=== PATIENT | male | born 1965 | race Two or more races ===

== ENCOUNTER 2017-11-14 12:36 | Emergency (ER) | payer SELFPAY ==
[~2017-11-14] VITALS: Ht 167.6 cm; Wt 68.0 kg
[2017-11-14 13:36] VITALS: BP 128/83
[2017-11-14 14:29] LABS: CHLORIDE 102 mEq/L (98-107)
[2017-11-14 14:35] LABS: BASOPHILS % 0.2 % (0.0-2.0); EOSINOPHILS % 0.1 % (0.0-5.0); HEMATOCRIT. 47.5 % (42.0-52.0); HEMOGLOBIN. 16.4 g/dL (14.0-18.0); LYMPHOCYTES % 8.5 % (20.0-50.0); MEAN CORPUSCULAR HEMOGLOBIN 31.9 pg (28.0-32.0); MEAN CORPUSCULAR VOLUME 92.1 fL (80.0-94.0); MEAN PLATELET VOLUME 8.3 fl (7.4-10.4); MONOCYTES % 6.5 % (2.0-8.0); NEUTROPHILS % 84.7 % (40.0-76.0); PLATELET 204 x1000/uL (130-400); RED BLOOD CELL COUNT 5.15 mill/uL (4.7-6.1); RED CELL DISTRIBUTION WIDTH 12.5 % (11.6-14.6)
[2017-11-14 14:37] LABS: CLARITY URINE CLEAR (CLEAR); COLOR URINE YELLOW (YELLOW); KETONES URINE NEGATIVE (NEGATIVE); LEUKOCYTE ESTERASE URINE NEGATIVE (NEGATIVE); NITRITE URINE NEGATIVE (NEGATIVE); OCCULT BLOOD URINE NEGATIVE (NEGATIVE); PROTEIN URINE TRACE (NEGATIVE); SPECIFIC GRAVITY URINE 1.016 (1.005-1.030); UROBILINOGEN URINE 0.2 E.U./dL (0.2-1.0)
[2017-11-14 14:45] LABS: CARBON DIOXIDE 30 mEq/L (21-32); ETHANOL BLOOD < 10 mg/dL
[2017-11-14 15:10] LABS: *AMPHETAMINES SCREEN URINE NEGATIVE (NEGATIVE); *BARBITURATES SCREEN URINE NEGATIVE (NEGATIVE); *BENZODIAZEPINES SCREEN URINE PRESUMTIVE POSITIVE (NEGATIVE); *COCAINE SCREEN URINE NEGATIVE (NEGATIVE); CANNABINOID URINE SCREEN NEGATIVE (NEGATIVE); METHADONE URINE SCREEN NEGATIVE (NEGATIVE); OPIATES URINE SCREEN NEGATIVE (NEGATIVE); PHENCYCLIDINE URINE SCREEN NEGATIVE (NEGATIVE)
[2017-11-14] MEDS ORDERED: PHENYTOIN SODIUM 1,000 MG in SODIUM CHLORIDE 0.9% 100 ML IV ONE (15:15)
[2017-11-14] MEDS ORDERED: PHENYTOIN SODIUM 1,000 MG in SODIUM CHLORIDE 0.9% 100 ML IV NR (15:45)
== END 2017-11-14 18:31 | disposition home or self-care (01) ==
LOC: ER 12:41
DX: G40.909 Epilepsy, unspecified, not intractable, without status epilepticus (principal); D72.829 Elevated white blood cell count, unspecified; R73.9 Hyperglycemia, unspecified; R74.0 Nonspecific elevation of levels of transaminase and lactic acid dehydrogenase [LDH]; F13.10 Sedative, hypnotic or anxiolytic abuse, uncomplicated
CPT/HCPCS: 36415; 80053; 80185; 80305; 81001; 85025; 96365; 99284; G0482; J1165; J7050

== ENCOUNTER 2017-12-31 22:07 | Inpatient (IN) | payer SELFPAY ==
[~2017-12-31] VITALS: Ht 175.3 cm; Wt 83.9 kg
[2017-12-31] MEDS ORDERED: SODIUM CHLORIDE 0.9% 1,000 ML IV ONE (22:12)
[2017-12-31] MEDS ORDERED: LORAZEPAM 2MG/ML CPJ IV ONE (22:15)
[2017-12-31] MEDS ORDERED: LORAZEPAM 2MG/ML CPJ ONE (22:18)
[2017-12-31 23:40] LABS: HEMATOCRIT. 46.2 % (42.0-52.0); HEMOGLOBIN. 15.9 g/dL (14.0-18.0); MEAN CORPUSCULAR HEMOGLOBIN 31.3 pg (28.0-32.0); MEAN CORPUSCULAR VOLUME 90.7 fL (80.0-94.0); MEAN PLATELET VOLUME 8.4 fl (7.4-10.4); PLATELET 211 x1000/uL (130-400); RED BLOOD CELL COUNT 5.09 mill/uL (4.7-6.1); RED CELL DISTRIBUTION WIDTH 12.4 % (11.6-14.6)
[2017-12-31 23:50] LABS: INR 1.1; PROTHROMBIN TIME 11.4 sec (9.4-11.6)
[2017-12-31 23:51] LABS: AMMONIA 54 uMol/L (<32)
[2017-12-31 23:56] LABS: CHLORIDE 100 mEq/L (98-107); CREATINE KINASE 191 IU/L (39-308); ETHANOL BLOOD < 10 mg/dL; TROPONIN I < 0.02 ng/mL (0.00-0.04)
[2018-01-01 00:03] LABS: CARBAMAZEPINE < 0.5 ug/mL (4-12); PHENOBARBITAL < 2.1 ug/mL (15.0-40.0); VALPROIC ACID < 3.0 ug/mL (50-100)
[2018-01-01] MEDS ORDERED: LEVETIRACETAM 1000MG/100ML 100 ML IV SCH (00:15)
[2018-01-01] MEDS ORDERED: SODIUM CHLORIDE 0.9% 1000ML BAG (SEPSIS BOLUS) IV ONE (00:15)
[2018-01-01] MEDS ORDERED: CEFTRIAXONE 1 G PREMIX 50 ML IV SCH (00:15)
[2018-01-01] MEDS ORDERED: AZITHROMYCIN 500 MG in DEXT 5% WATER 250 ML IV ONE (00:30)
[2018-01-01] MEDS ORDERED: LACTULOSE 20G/30ML UDC PO ONE (00:30)
[2018-01-01 01:26] LABS: PLATELET ESTIMATE NORMAL
[2018-01-01 13:06] VITALS: BP 129/79
[2018-01-01] MEDS ORDERED: PHEN100C4 PO (13:17)
[2018-01-01] MEDS ORDERED: SODIUM CHLORIDE 0.9% 1,000 ML IV SCH (14:15)
[2018-01-01] MEDS ORDERED: LORAZEPAM 2MG/ML CPJ IV PRN (14:15)
[2018-01-01] MEDS: ENOXAPARIN 40MG/0.4ML SYR SUBCUT SCH (14:45)
[2018-01-01 16:00] VITALS: BP 123/77
[2018-01-01] MEDS: PHENYTOIN SODIUM EXTENDED 100MG CAPSULE PO SCH (16:22)
[2018-01-01 20:00] VITALS: BP 129/80
[2018-01-02] VITALS (7 sets, daily range): BP systolic 107–164; BP diastolic 71–90
[2018-01-02] MEDS: ENOXAPARIN 40MG/0.4ML SYR SUBCUT SCH (09:02)
[2018-01-02] MEDS: PHENYTOIN SODIUM EXTENDED 100MG CAPSULE PO SCH ×2 (09:02→16:15)
[2018-01-02] MEDS ORDERED: ONDANSETRON HCL 4MG/2ML VIAL IV PRN (15:15)
[2018-01-02] MEDS ORDERED: ACETAMINOPHEN 650MG/20.3ML UDC GT PRN (15:15)
[2018-01-02] MEDS ORDERED: SODIUM CHLORIDE 0.9% 1,000 ML IV SCH (15:15)
[2018-01-02 18:05] LABS: BASOPHILS % 0.4 % (0.0-2.0); EOSINOPHILS % 0.8 % (0.0-5.0); HEMATOCRIT. 45.2 % (42.0-52.0); HEMOGLOBIN. 15.8 g/dL (14.0-18.0); LYMPHOCYTES % 19.8 % (20.0-50.0); MEAN CORPUSCULAR HEMOGLOBIN 32.1 pg (28.0-32.0); MEAN CORPUSCULAR VOLUME 91.6 fL (80.0-94.0); MEAN PLATELET VOLUME 8.9 fl (7.4-10.4); MONOCYTES % 8.8 % (2.0-8.0); NEUTROPHILS % 70.2 % (40.0-76.0); PLATELET 189 x1000/uL (130-400); RED BLOOD CELL COUNT 4.94 mill/uL (4.7-6.1); RED CELL DISTRIBUTION WIDTH 12.6 % (11.6-14.6)
[2018-01-02 18:16] LABS: CHLORIDE 104 mEq/L (98-107)
[2018-01-02] MEDS ORDERED: PHEN100C4 PO (19:31)
== END 2018-01-02 20:00 | disposition home or self-care (01) | DRG 53 ==
LOC: ER 22:48 → 6EST 01-01 00:25 → ENRESERV 01-01 11:12
PROVIDERS: ADMIT Internal Medicine Nephrology; ATTEND Internal Medicine Nephrology
DX: G40.89 Other seizures (principal); E72.20 Disorder of urea cycle metabolism, unspecified; E87.2 Acidosis; R74.0 Nonspecific elevation of levels of transaminase and lactic acid dehydrogenase [LDH]; D72.829 Elevated white blood cell count, unspecified; Z91.14 Patient's other noncompliance with medication regimen; Z91.19 Patient's noncompliance with other medical treatment and regimen; Z79.899 Other long term (current) drug therapy
CPT/HCPCS: 36415; 70450; 71045; 80053; 80156; 80165; 80184; 80185; 82140; 82550; 83605; 83880; 84443; 84484; 85025; 85610; 87040; 93005; 96365; 96366; 96367; 96368; 96375; 99291; G0482; J0456; J0696; J1650; J1953; J2060; J7030; J7060

== ENCOUNTER 2018-07-12 17:36 | Inpatient (IN) | payer SELFPAY ==
[~2018-07-12] VITALS: Ht 165.1 cm; Wt 59.4 kg
[~2018-07-12 17:36] MED LIST: PHEN100C4 PO
[2018-07-12] MEDS ORDERED: SODIUM CHLORIDE 0.9% 1,000 ML IV ONE (17:55)
[2018-07-12] MEDS ORDERED: LORAZEPAM 2MG/ML CPJ IV ONE (18:30)
[2018-07-12 19:09] LABS: BASOPHILS % 0.5 % (0.0-2.0); EOSINOPHILS % 1.7 % (0.0-5.0); HEMATOCRIT. 44.7 % (42.0-52.0); HEMOGLOBIN. 15.6 g/dL (14.0-18.0); LYMPHOCYTES % 24.7 % (20.0-50.0); MEAN CORPUSCULAR HEMOGLOBIN 33.3 pg (28.0-32.0); MEAN CORPUSCULAR VOLUME 95.2 fL (80.0-94.0); MEAN PLATELET VOLUME 8.8 fl (7.4-10.4); MONOCYTES % 7.8 % (2.0-8.0); NEUTROPHILS % 65.3 % (40.0-76.0); PLATELET 191 x1000/uL (130-400); RED BLOOD CELL COUNT 4.69 mill/uL (4.7-6.1); RED CELL DISTRIBUTION WIDTH 12.7 % (11.6-14.6)
[2018-07-12 19:10] LABS: CHLORIDE 104 mEq/L (98-107)
[2018-07-12 19:17] LABS: ETHANOL BLOOD < 10 mg/dL
[2018-07-12] MEDS ORDERED: PHENYTOIN SODIUM 1,000 MG in SODIUM CHLORIDE 0.9% 100 ML IV ONE (20:00)
[2018-07-12] MEDS ORDERED: IPRATROPIUM/ALBUTEROL 0.5-3(2.5)MG/3ML NEB INH PRN (23:30)
[2018-07-12] MEDS ORDERED: ONDANSETRON HCL 4MG/2ML VIAL IV PRN (23:30)
[2018-07-12] MEDS ORDERED: LORAZEPAM 2MG/ML CPJ IV PRN (23:30)
[2018-07-12 23:40] VITALS: BP 134/76
[2018-07-13] MEDS: DEXT 5%/0.45% NACL 1000ML 1,000 ML IV SCH ×2 (02:38→12:31)
[2018-07-13 04:00] VITALS: BP 113/70
[2018-07-13] MEDS: ACETAMINOPHEN 650MG/20.3ML UDC GT PRN ×2 (04:19→09:21)
[2018-07-13 06:40] LABS: HEMATOCRIT. 46.5 % (42.0-52.0); HEMOGLOBIN. 16.2 g/dL (14.0-18.0); LYMPHOCYTES % 8.1 % (20.0-50.0); MEAN CORPUSCULAR HEMOGLOBIN 32.4 pg (28.0-32.0); MEAN CORPUSCULAR VOLUME 93.2 fL (80.0-94.0); MEAN PLATELET VOLUME 9.3 fl (7.4-10.4); MONOCYTES % 5.9 % (2.0-8.0); PLATELET 189 x1000/uL (130-400); RED BLOOD CELL COUNT 4.99 mill/uL (4.7-6.1); RED CELL DISTRIBUTION WIDTH 12.7 % (11.6-14.6)
[2018-07-13 08:00] VITALS: BP 126/66
[2018-07-13] MEDS: ENOXAPARIN 40MG/0.4ML SYR SUBCUT SCH (09:21)
[2018-07-13 10:13] LABS: CHLORIDE 103 mEq/L (98-107)
[2018-07-13 10:20] LABS: PHOSPHORUS 2.9 mg/dL (2.5-4.9)
[2018-07-13 12:00] VITALS: BP 100/43
[2018-07-13 16:00] VITALS: BP 109/70
[2018-07-13 20:00] VITALS: BP 119/75
[2018-07-13] MEDS ORDERED: PHENYTOIN SODIUM EXTENDED 100MG CAPSULE PO SCH (21:00)
[2018-07-13 22:00] VITALS: BP 115/74
[2018-07-14 00:50] VITALS: BP 115/74
[2018-07-14 04:00] VITALS: BP 125/75
[2018-07-14 07:59] VITALS: BP 131/78
[2018-07-14] MEDS: ENOXAPARIN 40MG/0.4ML SYR SUBCUT SCH (08:29)
[2018-07-14 09:20] LABS: BASOPHILS % 0.3 % (0.0-2.0); EOSINOPHILS % 0.2 % (0.0-5.0); HEMATOCRIT. 47.5 % (42.0-52.0); HEMOGLOBIN. 16.7 g/dL (14.0-18.0); LYMPHOCYTES % 10.2 % (20.0-50.0); MEAN CORPUSCULAR HEMOGLOBIN 32.9 pg (28.0-32.0); MEAN CORPUSCULAR VOLUME 93.5 fL (80.0-94.0); MEAN PLATELET VOLUME 8.9 fl (7.4-10.4); MONOCYTES % 6.1 % (2.0-8.0); NEUTROPHILS % 83.2 % (40.0-76.0); PLATELET 192 x1000/uL (130-400); RED BLOOD CELL COUNT 5.08 mill/uL (4.7-6.1); RED CELL DISTRIBUTION WIDTH 12.5 % (11.6-14.6)
[2018-07-14 11:07] LABS: CHLORIDE 104 mEq/L (98-107)
[2018-07-14 12:00] VITALS: BP 127/80
[2018-07-14 15:52] VITALS: BP 148/95
[2018-07-14 16:00] VITALS: BP 148/95
== END 2018-07-14 17:40 | disposition home or self-care (01) | DRG 720 ==
LOC: ER 18:03 → 5WST 21:29 → EDBEDREQTM 21:32 → EDBEDREQ 21:32 → ENRESERV 22:05
PROVIDERS: ADMIT Internal Medicine Nephrology; ATTEND Internal Medicine Nephrology
DX: A41.9 Sepsis, unspecified organism (principal); G40.909 Epilepsy, unspecified, not intractable, without status epilepticus; Z91.14 Patient's other noncompliance with medication regimen; Z79.899 Other long term (current) drug therapy
CPT/HCPCS: 36415; 70450; 71045; 80048; 80053; 80185; 83036; 83735; 84100; 85025; 87040; 93005; 96361; 96374; 96375; 99285; G0482; J1165; J1650; J2060; J7030; J7050

== ENCOUNTER 2018-07-15 06:25 | Emergency (ER) | payer SELFPAY ==
[~2018-07-15] VITALS: Ht 172.7 cm; Wt 68.0 kg
[2018-07-15 07:50] LABS: BASOPHILS % 0.5 % (0.0-2.0); EOSINOPHILS % 0.5 % (0.0-5.0); HEMATOCRIT. 49.1 % (42.0-52.0); HEMOGLOBIN. 17.2 g/dL (14.0-18.0); LYMPHOCYTES % 14.2 % (20.0-50.0); MEAN CORPUSCULAR HEMOGLOBIN 32.6 pg (28.0-32.0); MEAN CORPUSCULAR VOLUME 92.9 fL (80.0-94.0); MEAN PLATELET VOLUME 8.4 fl (7.4-10.4); MONOCYTES % 10.9 % (2.0-8.0); NEUTROPHILS % 73.9 % (40.0-76.0); PLATELET 200 x1000/uL (130-400); RED BLOOD CELL COUNT 5.28 mill/uL (4.7-6.1); RED CELL DISTRIBUTION WIDTH 12.4 % (11.6-14.6)
[2018-07-15 07:57] LABS: CHLORIDE 104 mEq/L (98-107)
[2018-07-15 08:02] LABS: ETHANOL BLOOD < 10 mg/dL
[2018-07-15 08:36] LABS: CLARITY URINE CLEAR (CLEAR); COLOR URINE DARK YELLOW (YELLOW); KETONES URINE NEGATIVE (NEGATIVE); LEUKOCYTE ESTERASE URINE NEGATIVE (NEGATIVE); NITRITE URINE NEGATIVE (NEGATIVE); OCCULT BLOOD URINE NEGATIVE (NEGATIVE); PH URINE 5.5 (4.5-8.0); PROTEIN URINE TRACE (NEGATIVE); SPECIFIC GRAVITY URINE 1.018 (1.005-1.030); UROBILINOGEN URINE 0.2 E.U./dL (0.2-1.0)
[2018-07-15 08:56] LABS: *AMPHETAMINES SCREEN URINE NEGATIVE (NEGATIVE); *BARBITURATES SCREEN URINE NEGATIVE (NEGATIVE); *BENZODIAZEPINES SCREEN URINE PRESUMTIVE POSITIVE (NEGATIVE)
[2018-07-15 08:57] LABS: *COCAINE SCREEN URINE NEGATIVE (NEGATIVE); CANNABINOID URINE SCREEN NEGATIVE (NEGATIVE); METHADONE URINE SCREEN NEGATIVE (NEGATIVE); OPIATES URINE SCREEN PRESUMTIVE POSITIVE (NEGATIVE); PHENCYCLIDINE URINE SCREEN NEGATIVE (NEGATIVE)
[2018-07-15 10:07] VITALS: BP 144/94
== END 2018-07-15 10:11 | disposition home or self-care (01) ==
LOC: ER 06:25
DX: R44.1 Visual hallucinations (principal); F11.90 Opioid use, unspecified, uncomplicated; F15.90 Other stimulant use, unspecified, uncomplicated; R56.9 Unspecified convulsions
CPT/HCPCS: 36415; 71045; 80053; 80185; 80305; 80307; 80329; 81003; 82962; 84443; 85025; 93005; 99285; G0482

== ENCOUNTER 2024-04-16 00:03 | Inpatient (IN) | payer SELFPAY ==
[~2024-04-16] VITALS: Ht 160 cm; Wt 72.3 kg
[2024-04-16] MEDS: PIPERACILLIN/TAZO 3.375G/50ML 50 ML IV ONE (00:35)
[2024-04-16 00:44] LABS: BASOPHILS % 0.3 % (0.0-2.0); EOSINOPHILS % 0.1 % (0.0-5.0); HEMATOCRIT. 46.2 % (42.0-52.0); HEMOGLOBIN. 16.3 g/dL (14.0-18.0); LYMPHOCYTES % 13.6 % (20.0-50.0); MEAN CORPUSCULAR HEMOGLOBIN 31.8 pg (28.0-32.0); MEAN CORPUSCULAR HGB CONC 35.3 g/dL (31.0-37.0); MEAN PLATELET VOLUME 9.4 fl (7.4-10.4); MONOCYTES % 2.2 % (2.0-8.0); NEUTROPHILS % 83.8 % (40.0-76.0); PLATELET 200 x1000/uL (130-400); RED BLOOD CELL COUNT 5.13 mill/uL (4.7-6.1); RED CELL DISTRIBUTION WIDTH 12.6 % (11.6-14.6); WHITE BLOOD COUNT 12.1 x1000/uL (4.5-11.0)
[2024-04-16 00:47] LABS: CHLORIDE 104 mEq/L (98-107); POTASSIUM 3.4 mEq/L (3.5-5.1); SODIUM 138 mEq/L (136-145)
[2024-04-16] MEDS: SODIUM CHLORIDE 0.9% 1000ML BAG (SEPSIS BOLUS) IV ONE (00:47)
[2024-04-16 00:48] LABS: CALCIUM 9.1 mg/dL (8.7-10.4); CARBON DIOXIDE 26 mEq/L (21-32)
[2024-04-16 00:53] LABS: CREATININE 0.9 mg/dL (0.6-1.3); GLUCOSE 143 mg/dL (70-105); PROTHROMBIN TIME 11.1 sec (9.6-11.0); UREA NITROGEN BLOOD 12 mg/dL (9-23)
[2024-04-16 00:54] LABS: TROPONIN I HIGH SENSITIVITY 11 ng/L (3.0-53)
[2024-04-16 00:55] LABS: ALANINE AMINOTRANSFERASE 222 IU/L (10-49); ALBUMIN 4.7 g/dL (3.2-4.8); ASPARTATE AMINOTRANSFERASE 108 IU/L (<34)
[2024-04-16 00:56] LABS: BILIRUBIN TOTAL 0.8 mg/dL (0.1-1.0); ETHANOL BLOOD < 10 mg/dL (<10); PROTEIN TOTAL 7.8 g/dL (6.0-8.3)
[2024-04-16] MEDS: ACETAMINOPHEN 325MG TABLET PO STA (01:02)
[2024-04-16] MEDS: VANCOMYCIN 1G PREMIX 200 ML IV ONE (01:09)
[2024-04-16] MEDS: IOHEXOL-350 100 ML BOTTLE ONE (02:24)
[2024-04-16] MEDS ORDERED: IPRATROPIUM/ALBUTEROL 0.5-3(2.5)MG/3ML NEB HHN PRN (07:45)
[2024-04-16] MEDS ORDERED: MAGNESIUM/ALUMINUM HYDROXIDE/SIMETHICONE 30ML UDC PO PRN (07:45)
[2024-04-16] MEDS ORDERED: ACETAMINOPHEN 325MG TABLET PO PRN ×2 (07:45)
[2024-04-16] MEDS ORDERED: ONDANSETRON HCL 4MG/2ML INJ IV PRN (07:45)
[2024-04-16] MEDS ORDERED: DOCUSATE SODIUM 100MG CAPSULE PO PRN (07:45)
[2024-04-16] MEDS ORDERED: CLONIDINE 0.1MG TABLET PO PRN (07:45)
[2024-04-16] MEDS ORDERED: GUAIFENESIN 200MG/10ML SUGAR FREE UDC PO PRN (07:45)
[2024-04-16] MEDS ORDERED: LEVE500T19 PO (07:54)
[2024-04-16] MEDS: SODIUM CHLORIDE 0.9% 1,000 ML IV SCH (08:22)
[2024-04-16] MEDS: LEVETIRACETAM 500MG PREMIX 100 ML IV SCH (08:27)
[2024-04-16] MEDS: KCL 20MEQ/100ML PREMIX 100 ML IV NR (09:06)
[2024-04-16 09:51] LABS: TRIGLYCERIDE 76 mg/dL (0-150)
[2024-04-16 09:52] LABS: LDL CHOLESTEROL 64 mg/dL (5-100); TROPONIN I HIGH SENSITIVITY 15 ng/L (3.0-53)
[2024-04-16 09:53] LABS: AMMONIA 49 uMol/L (<32); CHOLESTEROL 112 mg/dL (<200); CREATINE KINASE 88 IU/L (46-171); HDL CHOLESTEROL 32 mg/dL (>55); PHOSPHORUS 3.1 mg/dL (2.5-4.9)
[2024-04-16 16:30] VITALS: BP 131/73; PULSE 71; RESP 18; TEMP 96
[2024-04-16 19:48] VITALS: BP 130/73; PULSE 66; TEMP 97.4; O2SAT 98
== END 2024-04-16 20:02 | disposition home or self-care (01) | DRG 53 ==
LOC: ER 00:03 → 5WST 01:32 → 7EST 15:33
PROVIDERS: ADMIT Internal Medicine; ATTEND Internal Medicine
DX: G40.909 Epilepsy, unspecified, not intractable, without status epilepticus (principal); G92.8 Other toxic encephalopathy; E83.42 Hypomagnesemia; I45.10 Unspecified right bundle-branch block; E87.6 Hypokalemia
CPT/HCPCS: 36415; 70496; 70498; 71045; 71275; 80053; 80061; 80320; 82140; 82550; 82962; 83036; 83605; 83735; 84100; 84145; 84484; 85025; 93005; 93970; 99291; J1953; J2543; J3370; J3480; J7030; Q9967; G0480

== ENCOUNTER 2025-03-28 15:34 | Inpatient (IN) | payer MEDICAID ==
[~2025-03-28] VITALS: Ht 167.6 cm; Wt 72.6 kg
[~2025-03-28 15:34] MED LIST changes: +LEVE500T19 PO; -PHEN100C4 PO
[2025-03-28 15:36] VITALS: O2SAT 94
[2025-03-28] MEDS ORDERED: LORAZEPAM 2MG/ML INJ IV ONE (15:45)
[2025-03-28] MEDS: LEVETIRACETAM 500MG PREMIX 100 ML IV ONE (16:12)
[2025-03-28] MEDS: LORAZEPAM 2MG/ML UD SYRINGE IV NR (16:13)
[2025-03-28 16:16] LABS: BASOPHILS % 0.4 % (0.0-2.0); EOSINOPHILS % 0.3 % (0.0-5.0); HEMATOCRIT. 49.9 % (42.0-52.0); HEMOGLOBIN. 17.2 g/dL (14.0-18.0); LYMPHOCYTES % 21.2 % (20.0-50.0); MEAN CORPUSCULAR HEMOGLOBIN 30.8 pg (28.0-32.0); MEAN CORPUSCULAR HGB CONC 34.4 g/dL (31.0-37.0); MEAN CORPUSCULAR VOLUME 89.6 fL (80.0-94.0); MEAN PLATELET VOLUME 9.9 fl (7.4-10.4); MONOCYTES % 6.1 % (2.0-8.0); PLATELET 210 x1000/uL (130-400); RED BLOOD CELL COUNT 5.57 mill/uL (4.7-6.1); RED CELL DISTRIBUTION WIDTH 12.8 % (11.6-14.6); WHITE BLOOD COUNT 9.9 x1000/uL (4.5-11.0)
[2025-03-28 16:22] LABS: CHLORIDE 100 mEq/L (98-107); POTASSIUM 3.5 mEq/L (3.5-5.1); SODIUM 139 mEq/L (136-145)
[2025-03-28 16:23] LABS: CALCIUM 9.5 mg/dL (8.7-10.4); CARBON DIOXIDE 29 mEq/L (21-32)
[2025-03-28 16:24] LABS: PROTHROMBIN TIME 11.1 sec (9.6-11.0)
[2025-03-28 16:28] LABS: GLUCOSE 185 mg/dL (70-105); UREA NITROGEN BLOOD 12 mg/dL (9-23)
[2025-03-28 16:29] LABS: ETHANOL BLOOD < 10 mg/dL (<10); PHENYTOIN < 2.0 ug/mL (10-20)
[2025-03-28] MEDS ORDERED: LEVETIRACETAM 500MG PREMIX 100 ML IV ONE (16:30)
[2025-03-28] MEDS ORDERED: LEVETIRACETAM 1000MG PREMIX 100 ML IV SCH (16:45)
[2025-03-28] MEDS: LEVETIRACETAM 1000MG PREMIX 100 ML IV SCH (17:00)
[2025-03-28] MEDS ORDERED: MAGNESIUM/ALUMINUM HYDROXIDE/SIMETHICONE 30ML UDC PO PRN (19:30)
[2025-03-28] MEDS ORDERED: DOCUSATE SODIUM 100MG CAPSULE PO PRN (19:30)
[2025-03-28] MEDS ORDERED: MORPHINE SULFATE 2 MG/ML INJ (NOT FOR IM USE) IV PRN (19:30)
[2025-03-28] MEDS ORDERED: HYDROCODONE/ACETAMINOPHEN 5/325MG TABLET PO PRN (19:30)
[2025-03-28] MEDS ORDERED: ACETAMINOPHEN 325MG TABLET PO PRN ×2 (19:30)
[2025-03-28] MEDS ORDERED: GUAIFENESIN 200MG/10ML SUGAR FREE UDC PO PRN (19:30)
[2025-03-28] MEDS ORDERED: CLONIDINE 0.1MG TABLET PO PRN (19:30)
[2025-03-28] MEDS ORDERED: LORAZEPAM 2MG/ML UD SYRINGE IV PRN ×2 (19:30→19:45)
[2025-03-28] MEDS ORDERED: IPRATROPIUM/ALBUTEROL 0.5-3(2.5)MG/3ML NEB HHN PRN (19:30)
[2025-03-28] MEDS ORDERED: ONDANSETRON HCL 4MG/2ML INJ IV PRN (19:30)
[2025-03-28] MEDS: ASPIRIN 325MG EC TABLET PO NR (19:53)
[2025-03-28] MEDS: SODIUM CHLORIDE 0.9% 1,000 ML IV SCH (19:54)
[2025-03-28] MEDS: ATORVASTATIN CALCIUM 40MG TABLET PO SCH (21:12)
[2025-03-28] MEDS: LEVETIRACETAM 500MG PREMIX 100 ML IV SCH (21:12)
[2025-03-28 21:43] VITALS: BP 136/82; PULSE 96; RESP 20; TEMP 36.3; O2SAT 98
[2025-03-28 22:30] VITALS: BP 136/82; PULSE 96; RESP 20; TEMP 36.3
[2025-03-29] VITALS: BP 120/48; PULSE 95; RESP 19; TEMP 36.7; O2SAT 97
[2025-03-29 00:23] LABS: ALANINE AMINOTRANSFERASE 290 IU/L (10-49); ALBUMIN 4.7 g/dL (3.2-4.8); ASPARTATE AMINOTRANSFERASE 175 IU/L (<34); BILIRUBIN DIRECT 0.3 mg/dL (<=3.0)
[2025-03-29 00:24] LABS: BILIRUBIN TOTAL 0.8 mg/dL (0.1-1.0); PROTEIN TOTAL 8.2 g/dL (6.0-8.3)
[2025-03-29 01:51] LABS: TROPONIN I HIGH SENSITIVITY 14 ng/L (3.0-53)
[2025-03-29] MEDS ORDERED: IOHEXOL-350 100 ML BOTTLE ONE (02:15)
[2025-03-29 04:00] VITALS: BP 119/55; PULSE 75; RESP 18; TEMP 36.1; O2SAT 98
[2025-03-29 06:47] LABS: BASOPHILS % 0.4 % (0.0-2.0); EOSINOPHILS % 1.3 % (0.0-5.0); HEMATOCRIT. 48.7 % (42.0-52.0); HEMOGLOBIN. 16.7 g/dL (14.0-18.0); LYMPHOCYTES % 30.1 % (20.0-50.0); MEAN CORPUSCULAR HEMOGLOBIN 30.6 pg (28.0-32.0); MEAN CORPUSCULAR HGB CONC 34.2 g/dL (31.0-37.0); MEAN CORPUSCULAR VOLUME 89.4 fL (80.0-94.0); MONOCYTES % 7.2 % (2.0-8.0); RED BLOOD CELL COUNT 5.45 mill/uL (4.7-6.1); RED CELL DISTRIBUTION WIDTH 12.9 % (11.6-14.6); WHITE BLOOD COUNT 19.2 x1000/uL (4.5-11.0)
[2025-03-29 06:58] LABS: DIFFERENTIAL COMMENT 1; MEAN PLATELET VOLUME 9.9 fl (7.4-10.4); PLATELET 210 x1000/uL (130-400)
[2025-03-29 07:02] LABS: CALCIUM 9.2 mg/dL (8.7-10.4); CARBON DIOXIDE 25 mEq/L (21-32); CHLORIDE 103 mEq/L (98-107); POTASSIUM 3.7 mEq/L (3.5-5.1); SODIUM 140 mEq/L (136-145)
[2025-03-29 07:06] LABS: CREATININE 0.9 mg/dL (0.6-1.3)
[2025-03-29 07:07] LABS: GLUCOSE 103 mg/dL (70-105); TRIGLYCERIDE 96 mg/dL (0-150)
[2025-03-29 07:08] LABS: CREATINE KINASE 60 IU/L (46-171); LDL CHOLESTEROL 87 mg/dL (5-100); UREA NITROGEN BLOOD 11 mg/dL (9-23)
[2025-03-29 07:09] LABS: CHOLESTEROL 131 mg/dL (<200); HDL CHOLESTEROL 29 mg/dL (>55)
[2025-03-29 07:10] LABS: T4 FREE 1.13 ng/dL (0.89-1.76)
[2025-03-29 08:00] VITALS: BP 129/88; PULSE 101; RESP 18; TEMP 36.3; O2SAT 96
[2025-03-29] MEDS ORDERED: LORAZEPAM 2MG/ML UD SYRINGE IV PRN (09:45)
[2025-03-29] MEDS ORDERED: CLONIDINE 0.1MG TABLET PO PRN (09:45)
[2025-03-29 10:06] LABS: BG BASE EXCESS 0.9 mmol/L (-2.0-3.0); BG CARBOXYHEMOGLOBIN 0.6 % (0.5-1.5); BG DEOXYHEMOGLOBIN 7.7 % (0.0-5.0); BG FRACTION INSPIRED OXYGEN 21; BG HCO3 ACT 25.4 mmol/L (21.0-28.0); BG METHEMOGLOBIN 0.1 % (0.5-1.5); BG OXYGEN SATURATION 92.2 % (94.0-98.0); BG OXYHEMOGLOBIN 91.6 % (94.0-98.0); BG PCO2 39.9 mmHg (35.0-48.0); BG PH 7.421 (7.350-7.450); BG SAMPLE SITE RIGHT BRACHIAL; BG TOTAL HEMOGLOBIN 18.3 g/dL (13.5-17.5); BG VENT MODE ROOM AIR
[2025-03-29] MEDS: ASPIRIN 81MG TABLET PO SCH (10:31)
[2025-03-29] MEDS: CLOPIDOGREL 75MG TABLET PO SCH (10:31)
[2025-03-29 12:00] VITALS: BP 101/58; PULSE 76; RESP 16; TEMP 36.5; O2SAT 99
[2025-03-29 16:00] VITALS: BP 107/71; PULSE 83; RESP 18; TEMP 36.2; O2SAT 98
[2025-03-29 20:00] VITALS: BP 114/79; PULSE 72; RESP 19; TEMP 36.2; O2SAT 100
[2025-03-29] MEDS: ATORVASTATIN CALCIUM 40MG TABLET PO SCH (21:08)
[2025-03-30] VITALS: BP 117/75; PULSE 59; RESP 18; TEMP 36.1; O2SAT 100
[2025-03-30 04:00] VITALS: BP 108/69; PULSE 65; RESP 18; TEMP 36.7; O2SAT 100
== END 2025-03-30 07:50 | disposition left against medical advice (07) | DRG 53 ==
LOC: ER 15:34 → EDBEDREQSVC 17:38 → EDBEDREQTM 17:38 → EDBEDREQ 17:38 → EDBEDREQSVC 18:42 → ENRESERV 19:35 → 6WST 20:32
PROVIDERS: ADMIT Hospitalist; ATTEND Hospitalist
PROC: 4A10X4Z Monitoring of Central Nervous Electrical Activity, External Approach (ICD-10-PCS; principal; 2025-03-30)
DX: G40.909 Epilepsy, unspecified, not intractable, without status epilepticus (principal); Z53.29 Procedure and treatment not carried out because of patient's decision for other reasons; Z79.02 Long term (current) use of antithrombotics/antiplatelets; Z79.82 Long term (current) use of aspirin; Z79.899 Other long term (current) drug therapy
CPT/HCPCS: 36415; 36600; 70496; 70498; 71045; 80048; 80061; 80076; 80185; 80320; 82375; 82542; 82550; 82805; 82962; 83735; 84439; 84443; 84484; 85025; 93005; 95816; 96365; 96375; 97162; 99285; J1953; J2060; Q9967; G0480